=== PATIENT | female | born 1980 | race Caucasian/White ===

== ENCOUNTER → 2017-12-30 09:32 | Outpatient (CLI) | payer SELFPAY ==
[2017-12-30 10:44] LABS: Hematocrit 29.4 % (37-47); Hemoglobin 10.1 g/dl (12.0-15.0); Mean Corp Hgb Conc 34.4 g/gl (32-36); Mean Corpuscular Hgb 33.7 pg (27.0-32.0); Mean Platelet Vol. 9.4 fl (6.2-12.0); Platelet Count 164 K/mm3 (150-450); RBC Distribution Width CV 14.9 % (11.6-14.6); RBC Distribution Width SD 53.1 fl (35.1-43.9); Scan Indicated on CBC? Y/N NO; White Blood Count 7.2 K/mm3 (4.4-11.0)
[2017-12-30 10:55] LABS: Glucose Challenge Gest 1H 50g 114 mg/dL (70-140)
== END ==
PROVIDERS: Visit Provider Obstetrics & Gynecology
DX: Z34.82 Encounter for supervision of other normal pregnancy, second trimester (principal)
CPT/HCPCS: 36415; 82950; 85027

== ENCOUNTER → 2018-02-10 10:30 | Outpatient (CLI) | payer SELFPAY ==
[2018-02-10 12:43] LABS: Free T3 2.5 pg/mL (2.18-3.98); T4 Free Direct 0.56 ng/dL (0.76-1.46); Thyroid Stim Hormone (TSH) 5.13 uIU/mL (0.358-3.74)
== END ==
PROVIDERS: Visit Provider Obstetrics & Gynecology
DX: O99.280 Endocrine, nutritional and metabolic diseases complicating pregnancy, unspecified trimester (principal); Z3A.00 Weeks of gestation of pregnancy not specified
CPT/HCPCS: 36415; 84439; 84443; 84481

== ENCOUNTER → 2018-02-24 10:19 | Outpatient (CLI) | payer SELFPAY ==
[2018-02-24 12:30] LABS: Group B Strep DNA By PCR Negative (Negative); Internal Control PASS; Probe Check PASS; Specimen Processing Control PASS
== END ==
PROVIDERS: Visit Provider Obstetrics & Gynecology
DX: Z36.85 Encounter for antenatal screening for Streptococcus B (principal)
CPT/HCPCS: 87081; 87653

== ENCOUNTER 2018-03-13 10:55 | Outpatient (CLI) | payer SELFPAY ==
[2018-03-13 11:21] VITALS: BMI 31.7
--- NOTE | 2018-03-14 02:25 | OB.TRI.NOTE ---
History of Present Illness Date of Service: 03/13/18 Was patient seen by the physician?: No Reason For Visit: R/O LABOR Date of Service: 03/13/18 Final NICOLETTE: 03/26/18 Gestational age: 38 Weeks and 1 Days History of Present Illness: 37 yo [id number] female at 38 1/7 wk prior C/S for twins, planning presents for CC of back pain starting the morning of presentation for evaluation Rates at 4/10 on pain scale. Allergies No Known Allergies Allergy (Verified 03/13/18 12:01) Physical Exam Cervix Dilation (cm): 1 Station: -3 Effacement (%): 0 - repeat check no change NST - FHR Rate Baby A Baseline: 130-140 avg variability. accels 160 Variability:: Moderate Accelerations:: 15 x 15 Decelerations:: None NST Reactive:: Yes, Appropriate for gestational age FHR Category:: Category I Uterine Activity:: Irreg UCs q 8-28 mins with intervening irritability pattern. Impression/Plan 38 1/7 wk back pain False labor. Reactive NST Home Keep next ofc appt, return to hospital if inc s/sx of labor, dec movement
--- NOTE | 2018-03-14 02:35 | OB.TRI.HP_ITS ---
History of Present Illness Date of Service: 03/13/18 Was patient seen by the physician?: No Reason For Visit: R/O LABOR Date of Service: 03/13/18 Final NICOLETTE: 03/26/18 Gestational age: 38 Weeks and 1 Days History of Present Illness: 37 yo [id number] female at 38 1/7 wk prior C/S for twins, planning presents for CC of back pain starting the morning of presentation for evaluation Rates at 4/10 on pain scale. Allergies No Known Allergies Allergy (Verified 03/13/18 12:01) Physical Exam Cervix Dilation (cm): 1 Station: -3 Effacement (%): 0 - repeat check no change NST - FHR Rate Baby A Baseline: 130-140 avg variability. accels 160 Variability:: Moderate Accelerations:: 15 x 15 Decelerations:: None NST Reactive:: Yes, Appropriate for gestational age FHR Category:: Category I Uterine Activity:: Irreg UCs q 8-28 mins with intervening irritability pattern. Impression/Plan 38 1/7 wk back pain False labor. Reactive NST Home Keep next ofc appt, return to hospital if inc s/sx of labor, dec movement
== END 2018-03-13 15:45 | disposition home or self-care (01) ==
LOC: WPOUT 11:19 → WP 03-14 13:36
PROVIDERS: Visit Provider Obstetrics & Gynecology
DX: O47.1 False labor at or after 37 completed weeks of gestation (principal); O26.893 Other specified pregnancy related conditions, third trimester; M54.9 Dorsalgia, unspecified; Z3A.38 38 weeks gestation of pregnancy
CPT/HCPCS: 59025; 59050; 99218; G0378

== ENCOUNTER → 2018-03-17 10:32 | Outpatient (CLI) | payer SELFPAY ==
[2018-03-17 13:22] LABS: Free T3 3.1 pg/mL (2.18-3.98); T4 Free Direct 0.63 ng/dL (0.76-1.46); Thyroid Stim Hormone (TSH) 0.64 uIU/mL (0.358-3.74)
== END ==
PROVIDERS: Visit Provider Obstetrics & Gynecology
DX: E03.9 Hypothyroidism, unspecified (principal)
CPT/HCPCS: 36415; 84439; 84443; 84481

== ENCOUNTER 2018-03-27 21:20 | Outpatient (CLI) | payer SELFPAY ==
[2018-03-27 22:02] VITALS: BMI 33.4
--- NOTE | 2018-03-28 06:46 | OB.TRI.NOTE ---
History of Present Illness Date of Service: 03/27/18 Was patient seen by the physician?: No Reason For Visit: R/O LABOR Date of Service: 03/28/18 Final NICOLETTE: 03/26/18 Final NICOLETTE Source: US <20 weeks Gestational age: 40 Weeks and 2 Days History of Present Illness: Contractions, hx of C/S for breech twins. Allergies No Known Allergies Allergy (Verified 03/27/18 22:03) Physical Exam General: Alert, Oriented x3, Cooperative, No apparent distress Cardiovascular: Regular rate, Regular Rhythm Lungs: Clear to auscultation, Normal air movement Abdomen: Soft, Non Tender, Non-Distended, Gravid, Appropriate for Gestational Age Extremities:: No edema Neurological: Neuro grossly intact ROLL CAPPER: Normal external genitalia Estimated gestational size: Appropriate for gestational size Presentation: Cephalic Cervix Dilation (cm): 2 Station: -2 Effacement (%): 50 NST - FHR Rate Baby A Baseline: 130s Variability:: Moderate Accelerations:: 15 x 15 Decelerations:: None NST Reactive:: Yes, Appropriate for gestational age FHR Category:: Category I Uterine Activity:: irregular Impression/Plan Not in active labor. Return if symptoms increase or has SROM.
--- NOTE | 2018-03-28 06:56 | OB.TRI.HP_ITS ---
History of Present Illness Date of Service: 03/27/18 Was patient seen by the physician?: No Reason For Visit: R/O LABOR Date of Service: 03/28/18 Final NICOLETTE: 03/26/18 Final NICOLETTE Source: US <20 weeks Gestational age: 40 Weeks and 2 Days History of Present Illness: Contractions, hx of C/S for breech twins. Allergies No Known Allergies Allergy (Verified 03/27/18 22:03) Physical Exam General: Alert, Oriented x3, Cooperative, No apparent distress Cardiovascular: Regular rate, Regular Rhythm Lungs: Clear to auscultation, Normal air movement Abdomen: Soft, Non Tender, Non-Distended, Gravid, Appropriate for Gestational Age Extremities:: No edema Neurological: Neuro grossly intact MORGUE TECHNICIAN: Normal external genitalia Estimated gestational size: Appropriate for gestational size Presentation: Cephalic Cervix Dilation (cm): 2 Station: -2 Effacement (%): 50 NST - FHR Rate Baby A Baseline: 130s Variability:: Moderate Accelerations:: 15 x 15 Decelerations:: None NST Reactive:: Yes, Appropriate for gestational age FHR Category:: Category I Uterine Activity:: irregular Impression/Plan Not in active labor. Return if symptoms increase or has SROM.
== END 2018-03-27 23:59 | disposition home or self-care (01) ==
LOC: WPOUT 22:00 → WP 22:01
PROVIDERS: Visit Provider Obstetrics & Gynecology
DX: O47.1 False labor at or after 37 completed weeks of gestation (principal); Z3A.40 40 weeks gestation of pregnancy
CPT/HCPCS: 59025; 59050; 99218; G0378

== ENCOUNTER 2018-04-02 06:36 | Inpatient (IN) | payer SELFPAY ==
[2018-04-02 06:48] VITALS: BMI 33.0
[2018-04-02] MEDS: Lactated Ringers 1,000 ML 50 ML IV ×3 (07:40→17:00)
[2018-04-02 07:57] LABS: Hemoglobin 10.5 g/dl (12.0-15.0); Mean Corpuscular Hgb 34.8 pg (27.0-32.0); Mean Corpuscular Volume 99.3 fL (81-99); Mean Platelet Vol. 10.2 fl (6.2-12.0); Platelet Count 144 K/mm3 (150-450); RBC Distribution Width CV 14.9 % (11.6-14.6); RBC Distribution Width SD 51.3 fl (35.1-43.9); Red Blood Count 3.02 M/mm3 (4.2-5.4); White Blood Count 6.9 K/mm3 (4.4-11.0)
[2018-04-02 07:59] LABS: Scan Indicated on CBC? Y/N NO
--- NOTE | 2018-04-02 13:10 | PCM.PN.BLA ---
Progress Note LABOR PROGRESS NOTE Has regular contractions. AVSS GEN - NAD, AAO x 3 FHR 135, minimal variability, +accelerations, no decelerations TOCO no contractions appreciated A/P: 37yo @ 41wga, h/o prior C/S for IOL, TOLAC, Cat II FHR -Amniotomy performed with meconium stained fluid -ISE placed -Reposition toco -Will plan to start pitocin if no regular contractions in 30-60 min. -Maternal and statuses reassuring
--- NOTE | 2018-04-02 17:20 | PCM.PN.BLA ---
Progress Note LABOR PROGRESS NOTE No complaints. Pam is comfortable with her epidural. AVSS GEN - NAD, AAO x 3 FHR 135, minimal variability, + accelerations, no decelerations TOCO 4/10 min SVE deferred, recent RN exam /-3 A/p: 37yo @ 41wga, IOL for TOLAC on pitocin, in latent labor, Cat II FHR -Pitocin at 5mu/min, will continue as tolerated by mother and fetus -Maternal and statuses overall reassuring
--- NOTE | 2018-04-02 20:56 | PCM.PN.BLA ---
Progress Note LABOR PROGRESS NOTE No complaints. AVSS GEN - NAD, AAO x 3 FHR 125, moderate variability, + accelerations, no decelerations TOCO 4-5/10 min SVE deferred, recent SVE 4.5/60/-2 A/P: 37yo @ 41wga, TOLAC, Cat I FHR -Continue pitocin as tolerated by mother and fetus -Maternal and status reassuring
--- NOTE | 2018-04-02 21:28 | PCM.PN.BLA ---
Progress Note LABOR PROGRESS NOTE Reports feeling pressure with contractions AVSS GEN - NAD, AAO x 3 FHR 120, minimal variability, no accelerations, no decelerations TOCO 4/10 min SVE FD/+2 station A/P: 37yo @ 41wga, TOLAC with Cat II FHR -Will start pushing -Anticipate vaginal delivery
[2018-04-02] MEDS: Oxytocin 30 units/NS 500 ml 30 UNITS/500 ML IV.SOLN 334 UNITS IV (22:25)
[2018-04-02] MEDS: Methylergonovine 0.2 MG/ML Ampul IM (22:27)
--- NOTE | 2018-04-02 22:50 | PCM.OB.VAG ---
- Problem List (1) 41 weeks gestation of Status: Acute (2) (vaginal after ) Status: Acute Vaginal Delivery Maternal Presentation: Medically Indicated Induction Method of Induction: Pitocin, Steele Bulb, Amniotomy Medical Reason for Induction: - - Late term Amniotic Membrane Rupture Type: Artificial Rupture of Membrane time: 1247h 04/02/18 Amniotic Fluid Description: Lightly stained meconium Final NICOLETTE: 03/26/18 Final NICOLETTE Source: US <20 weeks Gestational age: 41 Weeks and 1 Days Date of Procedure: 04/02/18 Pre-Operative Diagnosis: 41wga, TOLAC Post-Operative Diagnosis: 41wga, TOLAC Surgery/ Procedure Performed: Spontaneous Vaginal Delivery Anesthesiologist: Lucrecia Colón Type of Anesthesia: Epidural Description of Procedure: Patient was FD/+2 station. She pushed to deliver a vigorous female in direct OA. The infant was placed on the maternal abdomen and further attended by nursery personnel. The cord was doubly clamped and cut. Cord gases and cord blood specimen were obtained. The placenta delivered spontaneously and appeared intact on inspection. IV pitocin was started. There was heavy bleeding without hemorrhage. An intrauterine exam was performed with retrieval of small clots and no palpable anterior uterine wall defect. The patient was given IM Methergine. The bleeding persisted however resolved after the bladder was drained. A first degree perineal laceration was repaired with 3-0 Vicryl Rapide. Sponge and needle counts were correct x 2. weight 4360g Presentation: Vertex Placental Delivery Description: Spontaneous Placenta Disposition: [facility] Cord Vessel Description: 3 Vessels Nuchal Cord Compression: Without compression Cord Gases drawn per routine: ABG, VBG Cord Entanglement: None Drain: Steele to straight drain Estimated Blood Loss: 400 mL Infant A gender: Female (1 minute): 8 (5 minute): 9 Episiotomy Description: None Laceration: Midline, Perineal Extension/lac, 1st degree Medications given after delivery: IV Pitocin, IM Methergin Complications: None
[2018-04-02] MEDS: Oxytocin 30 units/NS 500 ml 30 UNITS/500 ML IV.SOLN 167 UNITS IV (23:00)
--- NOTE | 2018-04-02 23:09 | DCINST_ITS ---
Discharge Diet: No Restrictions Discharge Activity: Return to Normal Activity, May Shower, May Take a Tub Bath May resume sexual activity in: 6 weeks Lifting Restrictions: 20 lb Call your doctor if you observe: Fever of 101 or Higher, Inability to urinate, Inability to have a bowel movement, Using more than one pad per hour, Shortness of breath, Chest pain, Calf discomfort, Uncontrolled pain Cleanse incision/area with: Soap & Water Additional Instructions: If you experience any of the following, contact your healthcare provider. * Bleeding that soaks a pad every hour for 2 hours * Fever 100.4 or higher * Unrelieved incision or abdominal pain * Swelling, redness, discharge or bleeding from your incision or episiotomy site * Your incision begins to separate * Problems urinating (including inability to urinate or burning while urinating) . * Visual changes * Severe headache * Flu-like symptoms * Pain or redness in one of both of your breasts * Pain, warmth, tenderness or swelling in your legs, especially the calf area * Frequent nausea and vomiting * Symptoms of depression or anxiety If you experience any of the following, call 911 or go to the nearest Emergency Room. * Chest pain * Problems breathing * Seizure activity * Partial or complete paralysis of a body part, slurred speech, weakness or drooping of the face, or a sudden inability to walk or hold your balance Allergies/Adverse Reactions: Allergies No Known Allergies Allergy (Verified 03/27/18 22:03) Medications to take at Discharge Ascorbic Acid [Vitamin C] 500 mg PO DAILY@0800 03/13/18 Calcium Carbonate [Calcium] 500 mg PO DAILY 03/13/18 Magnesium 250 mg PO DAILY 03/13/18 Vit Calc,Iron,Folic [ Vitamins] 1 each PO DAILY 03/13/18 Thyroid,Pork [Bergen Thyroid] 120 mg PO DAILY 03/13/18 Ibuprofen 600 mg PO TID PRN #30 tab 04/03/18 The following prescriptions were given: Ibuprofen 600 mg PO TID PRN #30 tab PRN Reason: Pain Please Follow Up With: Mikey Miner MD When: 6 weeks Primary Care Physician: Care Physician,No Primary [Primary Care Provider] - Test Results: Test results from this visit will be discussed in further detail at your follow- up appointment, if applicable.
[2018-04-03 04:00] VITALS: BP 127/74; PULSE 72; RESP 17; TEMP 37.1
--- NOTE | 2018-04-03 05:00 | NURSING ---
Taking over pt care at this time.
[2018-04-03] MEDS: Ibuprofen 600 MG Tablet PO ×2 (08:09→21:41)
[2018-04-03] MEDS: Senna/Docusate Sodium 1 Tablet PO (08:10)
--- NOTE | 2018-04-03 09:15 | PCM.PN.OB ---
Patient Problems: Active and Suspected Problems 41 weeks gestation of (Acute) (vaginal after ) (Acute) Subjective: Reports intense cramping with . Pain improved with NSAIDs. Denies heavy lochia. Infant is nursing well. Objective: AVSS - Physical Exam General: Alert, Oriented x3, Cooperative, No apparent distress HEENT: Atraumatic, Normocephalic Lungs: Clear to auscultation, Normal air movement Cardiovascular: Regular rate, Regular Rhythm, Normal S1, Normal S2 Abdomen: Soft, Non Tender, Non-Distended, - - Fundus firm and nontender, lochia scant Extremities: No Calf Tenderness, - - 1+ b/l LE edema Neurological: Neuro grossly intact Psych/Mental Status: Normal Affect, Appropriate, Alert and oriented to time, place, person, mood and affect Vital Signs Temp Pulse Resp BP 98.7 F 72 17 127/74 H 04/03/18 04:00 04/03/18 04:00 04/03/18 04:00 04/03/18 04:00 Weight: 84.538 kg Body Mass Index (BMI) 33.0 Intake and Output for Last 24 Hours 04/01/18 04/02/18 04/03/18 23:59 23:59 23:59 Intake Total 2897 / 2897 1200 / 1200 Output Total 1600 / 1600 1150 / 1150 Balance 1297 / 1297 50 / 50 Laboratory Tests Past 24 Hrs 04/02/18 07:40 Blood Type A POSITIVE Antibody Screen NEGATIVE Medical Necessity - Tobacco Use Smoking Status: Never smoker Assessment/Plan All Active Problems 41 weeks gestation of (Acute) (vaginal after ) (Acute) 37yo PPD#1 s/p doing well. -Rh positive, Rubella immune -Routine care -
[2018-04-03 10:00] VITALS: BP 114/64; PULSE 83; RESP 16; TEMP 36.9
[2018-04-03 14:00] VITALS: BP 103/65; PULSE 85; RESP 16; TEMP 36.8
[2018-04-03 18:00] VITALS: BP 114/64; PULSE 83; RESP 16; TEMP 36.9
[2018-04-03] MEDS: Prenatal Vits Tablet 1 TABLET PO (19:00)
[2018-04-03 20:00] VITALS: BP 105/69; PULSE 81; RESP 17; TEMP 36.5
[2018-04-04 02:00] VITALS: PULSE 75; RESP 18
[2018-04-04] MEDS: Thyroid 60 MG Tablet 120 MG PO (05:49)
[2018-04-04 08:00] VITALS: BP 109/70; PULSE 74; RESP 16; TEMP 36.7
--- NOTE | 2018-04-04 08:37 | PCM.PN.OB ---
Patient Problems: Active and Suspected Problems 41 weeks gestation of (Acute) (vaginal after ) (Acute) Subjective: No issues overnight. Denies heavy lochia. Objective: avss - Physical Exam General: Alert, Oriented x3, Cooperative, No apparent distress HEENT: Atraumatic, Normocephalic Lungs: Clear to auscultation, Normal air movement Abdomen: Soft, Non Tender, Non-Distended, - - Fundus firm, nontender Extremities: No Calf Tenderness, - - +2 b/l LE pitting edema Neurological: Neuro grossly intact Psych/Mental Status: Normal Affect, Appropriate, Alert and oriented to time, place, person, mood and affect Vital Signs Temp Pulse Resp BP 97.7 F L 75 18 105/69 04/03/18 20:00 04/04/18 02:00 04/04/18 02:00 04/03/18 20:00 Oxygen Delivery Method Room Air Weight: 84.538 kg Body Mass Index (BMI) 33.0 Intake and Output for Last 24 Hours 04/02/18 04/03/18 04/04/18 23:59 23:59 23:59 Intake Total 2897 / 2897 1200 / 1200 Output Total 1600 / 1600 1150 / 1150 Balance 1297 / 1297 50 / 50 Medical Necessity - Tobacco Use Smoking Status: Never smoker Assessment/Plan All Active Problems 41 weeks gestation of (Acute) (vaginal after ) (Acute) 37yo PPD#2 s/p doing well. -Rh positive, Rubella immune -Routine care - -d/c home today
== END 2018-04-04 12:10 | disposition home or self-care (01) | DRG 775 ==
PROVIDERS: Obstetrics & Gynecology; Admitting Provider Obstetrics & Gynecology; Visit Provider Obstetrics & Gynecology
DX: O48.0 Post-term pregnancy (principal); O34.219 Maternal care for unspecified type scar from previous cesarean delivery; O70.0 First degree perineal laceration during delivery; O77.0 Labor and delivery complicated by meconium in amniotic fluid; O99.284 Endocrine, nutritional and metabolic diseases complicating childbirth; E89.0 Postprocedural hypothyroidism; Z87.59 Personal history of other complications of pregnancy, childbirth and the puerperium; Z3A.41 41 weeks gestation of pregnancy; Z37.0 Single live birth
CPT/HCPCS: 59025; 59050; 85027; 86850; 86900; 99218; J7120; G0378